=== PATIENT | female | born 1975 | race Caucasian/White ===

== ENCOUNTER → 2020-10-26 | Outpatient (CLI) | payer BC | LOC: KOH-I 13:55 | DX: E04.1 Nontoxic single thyroid nodule (principal) | CPT/HCPCS: 76536 ==

== ENCOUNTER → 2020-12-24 | Outpatient (CLI) | payer BC ==
[2020-12-25 11:34] LABS: RHEUMATOID ARTHRITIS FACTOR <10.0 IU/mL (0.0-13.9)
== END ==
LOC: LAB 12:09
PROVIDERS: Internal Medicine
DX: R13.10 Dysphagia, unspecified (principal); M25.50 Pain in unspecified joint; I73.00 Raynaud's syndrome without gangrene; D89.89 Other specified disorders involving the immune mechanism, not elsewhere classified; R76.8 Other specified abnormal immunological findings in serum
CPT/HCPCS: 36415; 85652; 86140; 86200; 86431